=== PATIENT | male | born 1995 | race Caucasian/White ===

== ENCOUNTER 2023-01-19 21:37 | Emergency (ER) | payer BC, SELFPAY ==
[2023-01-19] VITALS (11 sets, daily range): BP systolic 85–109; BP diastolic 43–68; PULSE 84–99; RESP 18; TEMP 36.9–38.8; O2SAT 95–98; BMI 23.5
--- NOTE | 2023-01-19 22:03 | ED_ITS ---
HPI - Anxiety General Time Seen by Provider: 22:03 <Francisca Baird MD - Last Filed: 01/21/23 22:37> Date Seen: 01/19/23 <Francisca Baird MD - Last Filed: 01/21/23 22:37> Chief Complaint: Fever <Francisca Baird MD - Last Filed: 01/21/23 22:37> Stated Complaint: numbness in legs and arms <Francisca Baird MD - Last Filed: 01/21/23 22:37> Time Seen by Provider: 01/19/23 22:02 <Francisca Baird MD - Last Filed: 01/21/23 22:37> Source: patient and RN notes reviewed <Francisca Baird MD - Last Filed: 01/21/23 22:37> Mode of arrival: ambulatory <Francisca Baird MD - Last Filed: 01/21/23 22:37> Limitations: no limitations <Francisca Baird MD - Last Filed: 01/21/23 22:37> History of Present Illness HPI narrative: Patient is a 27yo male brought in by EMS from home not feeling well. He went to work early this am and was fine up until lunch. Over lunch he started feeling extremely warm. He was unaware if he was having a temperature. Did have some ST earlier, ?cough. Has headache that is generalized now. Under blankets and is asking for another one. Denies body aches but was noted by roommates per sister to be ?shaky earlier. No abdominal pain, no nausea/vomiting, no diarrhea or urinary symptoms. No travel, no definite known ill contacts. No new sexual contacts/partners. No IV drug use, no drug use. Was reported to be hyperventilating earlier and had numbness/tingling in arms/legs. Patient is currently under blankets, shivering at times, cheeks flushed and feels very warm to me. Nursing staff did come in and recheck temperature and was found to be 101.8F orally. <Francisca Baird MD - Last Filed: 01/21/23 22:37> Related Data Allergies/Adverse Reactions: Allergies Allergy/AdvReac Type Severity Reaction Status Date / Time No Known Drug Allergies Allergy Verified 01/19/23 21:47 <Francisca Baird MD - Last Filed: 01/21/23 22:37> Review of Systems Status of ROS: Reports: 10 or more systems reviewed and unremarkable except as noted in History and below <Francisca Baird MD - Last Filed: 01/21/23 22:37> [facility] [place] Social History: Social History Smoking Status: Current every day smoker Do you use any of these nicotine containing products: Vaping Products Second hand tobacco smoke exposure: No How often do you have a drink containing alcohol: 2-4 times a month How many standard drinks containing alcohol do you have on a typical day: 3 or 4 How often do you have six or more drinks on one occasion: Never AUDIT-C Alcohol total score: 3 Non-prescribed substance use: denies use service: No <Francisca Baird MD - Last Filed: 01/21/23 22:37> Exam Const: Vital Signs, click to edit/add: Vital Signs - 24 hr 01/19/23 21:42 01/19/23 22:12 01/19/23 22:14 Temperature 98.4 F 101.8 F H Pulse Rate Pulse Rate [Pulse Oximeter] Pulse Rate [Right Pulse Oximeter] 90 Respiratory Rate 18 Blood Pressure Blood Pressure [Le ft Arm] Blood Pressure [Ri ght Upper Arm] 109/68 Pulse Oximetry 98 97 Oxygen Delivery Me thod Room Air 01/19/23 22:50 01/19/23 22:58 01/19/23 23:03 Temperature 101.8 F H 101.5 F H Pulse Rate 85 Pulse Rate [Pulse Oximeter] 84 Pulse Rate [Right Pulse Oximeter] Respiratory Rate 18 Blood Pressure 103/43 L Blood Pressure [Le ft Arm] 103/43 L Blood Pressure [Ri ght Upper Arm] Pulse Oximetry 97 95 Oxygen Delivery Me thod Room Air 01/19/23 23:04 01/19/23 23:15 01/19/23 23:15 Temperature 99.5 F Pulse Rate 85 91 Pulse Rate [Pulse Oximeter] Pulse Rate [Right Pulse Oximeter] Respiratory Rate Blood Pressure Blood Pressure [Le ft Arm] Blood Pressure [Ri ght Upper Arm] Pulse Oximetry 97 96 Oxygen Delivery Me thod 01/19/23 23:30 01/19/23 23:32 01/19/23 23:46 Temperature Pulse Rate 99 85 86 Pulse Rate [Pulse Oximeter] Pulse Rate [Right Pulse Oximeter] Respiratory Rate Blood Pressure 85/68 L Blood Pressure [Le ft Arm] Blood Pressure [Ri ght Upper Arm] Pulse Oximetry 97 98 96 Oxygen Delivery Me thod 01/20/23 00:00 01/20/23 00:12 01/20/23 01:00 Temperature Pulse Rate 83 Pulse Rate [Pulse Oximeter] Pulse Rate [Right Pulse Oximeter] 78 68 Respiratory Rate Blood Pressure Blood Pressure [Le ft Arm] Blood Pressure [Ri ght Upper Arm] 96/59 L 91/61 Pulse Oximetry 96 Oxygen Delivery Me thod 01/20/23 01:56 Temperature Pulse Rate Pulse Rate [Pulse Oximeter] Pulse Rate [Right Pulse Oximeter] 68 Respiratory Rate Blood Pressure Blood Pressure [Le ft Arm] Blood Pressure [Ri ght Upper Arm] 96/59 L Pulse Oximetry Oxygen Delivery Me thod <Francisca Baird MD - Last Filed: 01/21/23 22:37> Vital Signs, click to edit/add: Vital Signs - 24 hr 01/19/23 21:42 01/19/23 22:12 01/19/23 22:14 Temperature 98.4 F 101.8 F H Pulse Rate Pulse Rate [Pulse Oximeter] Pulse Rate [Right Pulse Oximeter] 90 Respiratory Rate 18 Blood Pressure Blood Pressure [Le ft Arm] Blood Pressure [Ri ght Upper Arm] 109/68 Pulse Oximetry 98 97 Oxygen Delivery Me thod Room Air 01/19/23 22:50 01/19/23 22:58 01/19/23 23:03 Temperature 101.8 F H 101.5 F H Pulse Rate 85 Pulse Rate [Pulse Oximeter] 84 Pulse Rate [Right Pulse Oximeter] Respiratory Rate 18 Blood Pressure 103/43 L Blood Pressure [Le ft Arm] 103/43 L Blood Pressure [Ri ght Upper Arm] Pulse Oximetry 97 95 Oxygen Delivery Me thod Room Air 01/19/23 23:04 01/19/23 23:15 01/19/23 23:15 Temperature 99.5 F Pulse Rate 85 91 Pulse Rate [Pulse Oximeter] Pulse Rate [Right Pulse Oximeter] Respiratory Rate Blood Pressure Blood Pressure [Le ft Arm] Blood Pressure [Ri ght Upper Arm] Pulse Oximetry 97 96 Oxygen Delivery Me thod 01/19/23 23:30 01/19/23 23:32 01/19/23 23:46 Temperature Pulse Rate 99 85 86 Pulse Rate [Pulse Oximeter] Pulse Rate [Right Pulse Oximeter] Respiratory Rate Blood Pressure 85/68 L Blood Pressure [Le ft Arm] Blood Pressure [Ri ght Upper Arm] Pulse Oximetry 97 98 96 Oxygen Delivery Me thod 01/20/23 00:00 01/20/23 00:12 01/20/23 01:00 Temperature Pulse Rate 83 Pulse Rate [Pulse Oximeter] Pulse Rate [Right Pulse Oximeter] 78 68 Respiratory Rate Blood Pressure Blood Pressure [Le ft Arm] Blood Pressure [Ri ght Upper Arm] 96/59 L 91/61 Pulse Oximetry 96 Oxygen Delivery Me thod 01/20/23 01:56 Temperature Pulse Rate Pulse Rate [Pulse Oximeter] Pulse Rate [Right Pulse Oximeter] 68 Respiratory Rate Blood Pressure Blood Pressure [Le ft Arm] Blood Pressure [Ri ght Upper Arm] 96/59 L Pulse Oximetry Oxygen Delivery Me thod <Laurie Foreman MD - Last Filed: 01/20/23 02:02> Documenting provider has reviewed patient's vital signs: yes <Francisca Baird MD - Last Filed: 01/21/23 22:37> Common normals: no apparent distress, average body habitus, oriented x3, no limitations and alert <Francisca Baird MD - Last Filed: 01/21/23 22:37> General appearance: cooperative, comfortable, well kempt, well developed and ill appearing <Francisca Baird MD - Last Filed: 01/21/23 22:37> HENMT: Common normals: normocephalic, head/scalp atraumatic, hearing grossly normal bilaterally, external ears normal, TM's normal bilaterally, external nose normal, nasal mucous membranes and turbinates normal, moist oral mucous membranes, oropharynx normal, dentition normal and gingiva normal <Francisca Baird MD - Last Filed: 01/21/23 22:37> Head and scalp: normocephalic and atraumatic <Francisca Baird MD - Last Filed: 01/21/23 22:37> Nose: external nose normal and nasal mucous membranes and turbinates normal <Francisca Baird MD - Last Filed: 01/21/23 22:37> External ear: external ears normal <Francisca Baird MD - Last Filed: 01/21/23 22:37> Tympanic membrane: TM's normal bilaterally <Francisca Baird MD - Last Filed: 01/21/23 22:37> Eye: Common normals: PERRL, EOMs intact bilaterally, conjunctivae normal and no scleral icterus <Francisca Baird MD - Last Filed: 01/21/23 22:37> Conjunctiva: conjunctiva(e) normal <Francisca Baird MD - Last Filed: 01/21/23 22:37> Pupil: PERRL <Francisca Baird MD - Last Filed: 01/21/23 22:37> Neck & C-Spine: Common normals: full ROM, no lymphadenopathy, supple, no meningeal signs, no JVD and thyroid normal <Francisca Baird MD - Last Filed: 01/21/23 22:37> Thyroid: thyroid normal <Francisca Baird MD - Last Filed: 01/21/23 22:37> Chest: Common normals: inspection of chest normal and palpation of chest normal <Francisca Baird MD - Last Filed: 01/21/23 22:37> Resp: Common normals: normal respiratory effort, no retractions, no use of accessory muscles and clear to auscultation bilaterally <Francisca Winslow MD - Last Filed: 01/21/23 22:37> Auscultation: clear to auscultation bilaterally <Francisca Baird MD - Last Filed: 01/21/23 22:37> Cardio: Common normals: no JVD, regular rate, regular rhythm, S1 normal heart sound, S2 normal heart sound, no gallops, no clicks and no murmurs <Francisca Baird MD - Last Filed: 01/21/23 22:37> Rate: regular rate <Francisca Baird MD - Last Filed: 01/21/23 22:37> Rhythm: regular rhythm <Francisca Baird MD - Last Filed: 01/21/23 22:37> Heart sounds: S1 normal and S2 normal <Francisca Baird MD - Last Filed: 01/21/23 22:37> GI: Common normals: Normal to inspection, nondistended, normoactive bowel sounds present, soft to palpation, non-tender, no hepatosplenomegaly and no masses <Francisca Baird MD - Last Filed: 01/21/23 22:37> Palpation: soft and no hepatosplenomegaly <Francisca Baird MD - Last Filed: 01/21/23 22:37> Neuro: Common normals: oriented x3 <Francisca Baird MD - Last Filed: 01/21/23 22:37> Sensorium/orientation: alert <Francisca Baird MD - Last Filed: 22:37> Meningeal signs: no meningeal signs <Francisca Baird MD - Last Filed: 01/21/23 22:37> Psych: Appearance: well kempt <Francisca Baird MD - Last Filed: 01/21/23 22:37> Course Course Hospital Course: Patient certainly could have had a hyperventilation episode earlier but at this time is demonstrating a fever and obviously has an acute infectious illness. Will start an IV, do full complement of labs, see if we can identify a source for him. Portable chest x-ray will be done. I see nothing focally on his exam or with his history that is giving me a definite diagnosis. We will give him 15 mg IV Toradol as well as a 1000 mg oral Tylenol. This certainly could be bacterial or viral. <Francisca Baird MD - Last Filed: 01/21/23 22:37> Reevaluation(s) Reevaluation #1: Patient complaining of some sharper pain coming in left side of abdomen that has happened a few times now while here. Reviewed that labs are all reassuring at this time, nothing definitive for source of infection. He is questioned on sore throat again and he states that he doesn't have any at this time. Discussed options and he would like to proceed with CT imaging of his abdomen. He is complaining of left sided general abdominal pain on palpation now. <Francisca Baird MD - Last Filed: 01/21/23 22:37> Time: 00:08 <Francisca Baird MD - Last Filed: 01/21/23 22:37> Reevaluation #2: Patient was signed out to me by Dr. Bey to follow up on his CT and strep results. Strep was negative. CT scan by my review showed some edema around the gallbladder in in the portal system, did not see any other acute findings, final radiology report is of periportal edema which is nonspecific, no other acute findings. Reviewed his labs, his white blood cell count is normal although he does have a left shift. His CRP is mildly elevated at 1.6, lactate was normal. Blood cultures and urine culture are pending. Urine was entirely negative. I have repeated his abdominal exam, he denies any abdominal pain at this time and does not have any tenderness specifically no right upper quadrant tenderness. There are recorded blood pressures in the 80s, but he is laying on the arm with the blood pressure cuff on it and when I had him lie on his back and repeated a pressure, it comes back at 96 systolic. He is not tachycardic. He is nontoxic in appearance. For now, I think it is reasonable to let him go home. Have discussed with him that there are some nonspecific findings on his CT scan, if he develops abdominal pain vomiting or other acute worsening would want him to return. His bilirubin is mildly elevated at 2.6 but other LFTs are normal including his alk-phos and transaminases. In the absence of any abdominal pain or tenderness, these findings are somewhat nonspecific. Primary care follow-up if not improving over the next week or so. Low threshold for return if worsening. Works notes were provided for him and his significant other. <Laurie Foreman MD - Last Filed: 01/20/23 02:02> Vital Signs Vital signs: Initial Vital Signs Temperature 98.4 F 01/19/23 21:42 Temperature Source Temporal Artery Scan 01/19/23 21:42 Pulse Rate 90 01/19/23 21:42 Pulse Rhythm Regular 01/19/23 21:42 Pulse Strength 3+ Normal 01/19/23 21:42 Respiratory Rate 18 01/19/23 21:42 Blood Pressure 109/68 01/19/23 21:42 Blood Pressure Mean 81 01/19/23 21:42 Blood Pressure Position Supine 01/19/23 21:42 Pulse Oximetry 98 01/19/23 21:42 Oxygen Delivery Method Room Air 01/19/23 21:42 Vital Signs Temperature 98.4 F 01/19/23 21:42 Pulse Rate 90 01/19/23 21:42 Respiratory Rate 18 01/19/23 21:42 Blood Pressure 109/68 01/19/23 21:42 Pulse Oximetry 98 01/19/23 21:42 Oxygen Delivery Method Room Air 01/19/23 21:42 Temperature 99.5 F 01/19/23 23:15 Pulse Rate 68 01/20/23 01:56 Respiratory Rate 18 01/19/23 22:58 Blood Pressure 96/59 L 01/20/23 01:56 Pulse Oximetry 96 01/20/23 00:00 Oxygen Delivery Method Room Air 01/19/23 22:58 <Francisca Baird MD - Last Filed: 01/21/23 22:37> Initial Vital Signs Temperature 98.4 F 01/19/23 21:42 Temperature Source Temporal Artery Scan 01/19/23 21:42 Pulse Rate 90 01/19/23 21:42 Pulse Rhythm Regular 01/19/23 21:42 Pulse Strength 3+ Normal 01/19/23 21:42 Respiratory Rate 18 01/19/23 21:42 Blood Pressure 109/68 01/19/23 21:42 Blood Pressure Mean 81 01/19/23 21:42 Blood Pressure Position Supine 01/19/23 21:42 Pulse Oximetry 98 01/19/23 21:42 Oxygen Delivery Method Room Air 01/19/23 21:42 Vital Signs Temperature 98.4 F 01/19/23 21:42 Pulse Rate 90 01/19/23 21:42 Respiratory Rate 18 01/19/23 21:42 Blood Pressure 109/68 01/19/23 21:42 Pulse Oximetry 98 01/19/23 21:42 Oxygen Delivery Method Room Air 01/19/23 21:42 Temperature 99.5 F 01/19/23 23:15 Pulse Rate 68 01/20/23 01:56 Respiratory Rate 18 01/19/23 22:58 Blood Pressure 96/59 L 01/20/23 01:56 Pulse Oximetry 96 01/20/23 00:00 Oxygen Delivery Method Room Air 01/19/23 22:58 <Laurie Foreman MD - Last Filed: 01/20/23 02:02> MDM - Anxiety Lab Data Attestation: I reviewed the patient's lab results. <Francisca Baird MD - Last Filed: 01/21/23 22:37> Labs: Lab Results 01/19/23 01/19/23 01/19/23 Range/Units 22:32 22:41 22:44 WBC 9.34 (4.50-11.00) K/uL RBC 4.97 (4.30-5.90) m/uL Hgb 15.1 (13.5-17.5) gm/dL Hct 40.3 (37.0-53.0) % MCV 81 (80-100) fL MCH 30 (26-34) pg MCHC 38 H (32-36) gm/dL RDW Coeff of El 11.8 (11.5-15.5) % Plt Count 180 (140-440) K/uL Neut % (Auto) 89.2 H (42.0-72.0) % Lymph % (Auto) 5.1 L (20-44) % [place] % (Auto) 4.2 (0.0-11.0) % Eos % (Auto) 0.7 (0.0-7.0) % Baso % (Auto) 0.1 (0.0-3.0) % Neut # (Auto) 8.30 H (1.7-7.0) K/uL Lymph # (Auto) 0.50 L (0.90-2.90) K/uL [place] # (Auto) 0.40 (0.00-0.90) K/UL Eos # (Auto) 0.07 (0.00-0.50) K/uL Baso # (Auto) 0.01 (0.00-0.30) K/uL Sodium 137 (135-149) mmol/L Potassium 3.3 L (3.6-5.1) mmol/L Chloride 104 (96-114) mmol/L Carbon Dioxide 20 (20-32) mmol/L BUN 17 (5-24) mg/dL Creatinine 1.0 (0.5-1.5) mg/dL Estimated Creat Clear 101.90 Estimated GFR 104 ml/min Glucose 90 (60-115) mg/dL Lactate 1.4 (0.5-1.9) mmol/L Calcium 9.5 (8.4-10.6) mg/dL Total Bilirubin 2.6 H (0.1-1.5) mg/dL AST 21 (12-35) U/L ALT 19 (4-50) U/L Alkaline Phosphatase 53 (40-150) U/L C-Reactive Protein 1.6 H (0.5-1.0) mg/dL Total Protein 8.1 (6.0-8.3) g/dL Albumin 4.9 (3.3-5.0) g/dL Urine Color Yellow (Yellow) Urine Appearance Clear (Clear) Urine pH 6.0 (5.0-8.5) Ur Specific [place] 1.020 (1.000-1.030) Urine Protein Negative (Negative) Urine Glucose (UA) Negative (Negative) Urine Ketones 1+ A (Negative) Urine Blood Trace-intact A (Negative) Urine Nitrite Negative (Negative) Urine Bilirubin Negative (Negative) Urine Urobilinogen 1.0 (0.2-1.0) Ur Leukocyte Esterase Negative (Negative) Urine RBC 0-2 (0-2) Urine WBC 0-2 (0-5) Ur Squamous Epith Cells Few (None-Few) Urine Bacteria Few A (None) Urine Mucus Few A (None) SARS-CoV-2 (PCR) Negative SARS-CoV-2 (Negative) Influenza Type A (PCR) Negative PCR FLU A (Negative) Influenza Type B (PCR) Negative PCR FLU B (Negative) RSV (PCR) Negative PCR RSV (Negative) Group A Strep DNA (Not Detectd) 01/20/23 Range/Units 01:00 WBC (4.50-11.00) K/uL RBC (4.30-5.90) m/uL Hgb (13.5-17.5) gm/dL Hct (37.0-53.0) % MCV (80-100) fL MCH (26-34) pg MCHC (32-36) gm/dL RDW Coeff of El (11.5-15.5) % Plt Count (140-440) K/uL Neut % (Auto) (42.0-72.0) % Lymph % (Auto) (20-44) % [place] % (Auto) (0.0-11.0) % Eos % (Auto) (0.0-7.0) % Baso % (Auto) (0.0-3.0) % Neut # (Auto) (1.7-7.0) K/uL Lymph # (Auto) (0.90-2.90) K/uL [place] # (Auto) (0.00-0.90) K/UL Eos # (Auto) (0.00-0.50) K/uL Baso # (Auto) (0.00-0.30) K/uL Sodium (135-149) mmol/L Potassium (3.6-5.1) mmol/L Chloride (96-114) mmol/L Carbon Dioxide (20-32) mmol/L BUN (5-24) mg/dL Creatinine (0.5-1.5) mg/dL Estimated Creat Clear Estimated GFR ml/min Glucose (60-115) mg/dL Lactate (0.5-1.9) mmol/L Calcium (8.4-10.6) mg/dL Total Bilirubin (0.1-1.5) mg/dL AST (12-35) U/L ALT (4-50) U/L Alkaline Phosphatase (40-150) U/L C-Reactive Protein (0.5-1.0) mg/dL Total Protein (6.0-8.3) g/dL Albumin (3.3-5.0) g/dL Urine Color (Yellow) Urine Appearance (Clear) Urine pH (5.0-8.5) Ur Specific [place] (1.000-1.030) Urine Protein (Negative) Urine Glucose (UA) (Negative) Urine Ketones (Negative) Urine Blood (Negative) Urine Nitrite (Negative) Urine Bilirubin (Negative) Urine Urobilinogen (0.2-1.0) Ur Leukocyte Esterase (Negative) Urine RBC (0-2) Urine WBC (0-5) Ur Squamous Epith Cells (None-Few) Urine Bacteria (None) Urine Mucus (None) SARS-CoV-2 (PCR) (Negative) Influenza Type A (PCR) (Negative) Influenza Type B (PCR) (Negative) RSV (PCR) (Negative) Group A Strep DNA NOT DETECTED (Not Detectd) <Francisca Baird MD - Last Filed: 01/21/23 22:37> Lab Results 01/19/23 01/19/23 01/19/23 Range/Units 22:32 22:41 22:44 WBC 9.34 (4.50-11.00) K/uL RBC 4.97 (4.30-5.90) m/uL Hgb 15.1 (13.5-17.5) gm/dL Hct 40.3 (37.0-53.0) % MCV 81 (80-100) fL MCH 30 (26-34) pg MCHC 38 H (32-36) gm/dL RDW Coeff of El 11.8 (11.5-15.5) % Plt Count 180 (140-440) K/uL Neut % (Auto) 89.2 H (42.0-72.0) % Lymph % (Auto) 5.1 L (20-44) % [place] % (Auto) 4.2 (0.0-11.0) % Eos % (Auto) 0.7 (0.0-7.0) % Baso % (Auto) 0.1 (0.0-3.0) % Neut # (Auto) 8.30 H (1.7-7.0) K/uL Lymph # (Auto) 0.50 L (0.90-2.90) K/uL [place] # (Auto) 0.40 (0.00-0.90) K/UL Eos # (Auto) 0.07 (0.00-0.50) K/uL Baso # (Auto) 0.01 (0.00-0.30) K/uL Sodium 137 (135-149) mmol/L Potassium 3.3 L (3.6-5.1) mmol/L Chloride 104 (96-114) mmol/L Carbon Dioxide 20 (20-32) mmol/L BUN 17 (5-24) mg/dL Creatinine 1.0 (0.5-1.5) mg/dL Estimated Creat Clear 101.90 Estimated GFR 104 ml/min Glucose 90 (60-115) mg/dL Lactate 1.4 (0.5-1.9) mmol/L Calcium 9.5 (8.4-10.6) mg/dL Total Bilirubin 2.6 H (0.1-1.5) mg/dL AST 21 (12-35) U/L ALT 19 (4-50) U/L Alkaline Phosphatase 53 (40-150) U/L C-Reactive Protein 1.6 H (0.5-1.0) mg/dL Total Protein 8.1 (6.0-8.3) g/dL Albumin 4.9 (3.3-5.0) g/dL Urine Color Yellow (Yellow) Urine Appearance Clear (Clear) Urine pH 6.0 (5.0-8.5) Ur Specific [place] 1.020 (1.000-1.030) Urine Protein Negative (Negative) Urine Glucose (UA) Negative (Negative) Urine Ketones 1+ A (Negative) Urine Blood Trace-intact A (Negative) Urine Nitrite Negative (Negative) Urine Bilirubin Negative (Negative) Urine Urobilinogen 1.0 (0.2-1.0) Ur Leukocyte Esterase Negative (Negative) Urine RBC 0-2 (0-2) Urine WBC 0-2 (0-5) Ur Squamous Epith Cells Few (None-Few) Urine Bacteria Few A (None) Urine Mucus Few A (None) SARS-CoV-2 (PCR) Negative SARS-CoV-2 (Negative) Influenza Type A (PCR) Negative PCR FLU A (Negative) Influenza Type B (PCR) Negative PCR FLU B (Negative) RSV (PCR) Negative PCR RSV (Negative) Group A Strep DNA (Not Detectd) 01/20/23 Range/Units 01:00 WBC (4.50-11.00) K/uL RBC (4.30-5.90) m/uL Hgb (13.5-17.5) gm/dL Hct (37.0-53.0) % MCV (80-100) fL MCH (26-34) pg MCHC (32-36) gm/dL RDW Coeff of El (11.5-15.5) % Plt Count (140-440) K/uL Neut % (Auto) (42.0-72.0) % Lymph % (Auto) (20-44) % [place] % (Auto) (0.0-11.0) % Eos % (Auto) (0.0-7.0) % Baso % (Auto) (0.0-3.0) % Neut # (Auto) (1.7-7.0) K/uL Lymph # (Auto) (0.90-2.90) K/uL [place] # (Auto) (0.00-0.90) K/UL Eos # (Auto) (0.00-0.50) K/uL Baso # (Auto) (0.00-0.30) K/uL Sodium (135-149) mmol/L Potassium (3.6-5.1) mmol/L Chloride (96-114) mmol/L Carbon Dioxide (20-32) mmol/L BUN (5-24) mg/dL Creatinine (0.5-1.5) mg/dL Estimated Creat Clear Estimated GFR ml/min Glucose (60-115) mg/dL Lactate (0.5-1.9) mmol/L Calcium (8.4-10.6) mg/dL Total Bilirubin (0.1-1.5) mg/dL AST (12-35) U/L ALT (4-50) U/L Alkaline Phosphatase (40-150) U/L C-Reactive Protein (0.5-1.0) mg/dL Total Protein (6.0-8.3) g/dL Albumin (3.3-5.0) g/dL Urine Color (Yellow) Urine Appearance (Clear) Urine pH (5.0-8.5) Ur Specific [place] (1.000-1.030) Urine Protein (Negative) Urine Glucose (UA) (Negative) Urine Ketones (Negative) Urine Blood (Negative) Urine Nitrite (Negative) Urine Bilirubin (Negative) Urine Urobilinogen (0.2-1.0) Ur Leukocyte Esterase (Negative) Urine RBC (0-2) Urine WBC (0-5) Ur Squamous Epith Cells (None-Few) Urine Bacteria (None) Urine Mucus (None) SARS-CoV-2 (PCR) (Negative) Influenza Type A (PCR) (Negative) Influenza Type B (PCR) (Negative) RSV (PCR) (Negative) Group A Strep DNA NOT DETECTED (Not Detectd) <Laurie Foreman MD - Last Filed: 01/20/23 02:02> Imaging Data Chest x-ray: Attestation: I have reviewed the pertinent imaging results. <Francisca Winslow MD - Last Filed: 01/21/23 22:37> Radiologist's impression: Patient: SHARONA CERDA Facility:?[facility] Patient ID:?[id number] Site Patient ID:?[id number]. Site :?[id number] Study:?XRay Chest PORTABLE ONE VIEW-01/19/2023 10:50:01 PM Ordering Physician:Alin Espinosa Final Report: Indication: Fever. Technique: Chest 1 view. Comparison: None. Findings/Impression: Cardiovascular and mediastinum: Heart size and vasculature are normal in caliber and appearance. Lungs and pleural space: There is central peribronchial thickening which could indicate bronchitis. Remainder of the lungs and pleural spaces are clear. No pneumothorax. Bones and soft tissues: No acute findings. Dictated by Ant Madrigal MD @ 01/19/2023 10:54:09 PM (Electronic Signature) <Francisca Baird MD - Last Filed: 01/21/23 22:37> Critical Care Time Critical Care Time Critical Care Time: No <Francisca Baird MD - Last Filed: 01/21/23 22:37> Discharge Plan Discharge Clinical Impression: Fever <Francisca Baird MD - Last Filed: 01/21/23 22:37> Patient Disposition: Home, Self-Care <Francisca Baird MD - Last Filed: 01/21/23 22:37> Condition: Stable <Francisca Baird MD - Last Filed: 01/21/23 22:37> Additional Instructions: Need to take ibuprofen 600mg up to 4x/day for fever. May need to use Tylenol 1000mg 3x/day as well. Drink plenty of fluids. For persistent high fevers, worsening abdominal pain, vomiting, or other acute changes, return to the ER for recheck. Viral illnesses usually are improving anywhere between 3-7 days. If not improving in that time frame, follow-up with primary care. <Francisca Baird MD - Last Filed: 01/21/23 22:37> Activity Level: Activity as Tolerated <Francisca Baird MD - Last Filed: 01/21/23 22:37> Activity as Tolerated <Laurie Foreman MD - Last Filed: 01/20/23 02:02> Discharge Diet: Regular <Francisca Baird MD - Last Filed: 01/21/23 22:37> Regular <Laurie Foreman MD - Last Filed: 01/20/23 02:02> Follow Up/Referrals: Provider,Not a Local [Referring] - <Francisca Baird MD - Last Filed: 01/21/23 22:37> Stand Alone Forms: MyHealth Info Instructions <Francisca Baird MD - Last Filed: 01/21/23 22:37>
--- NOTE | 2023-01-19 22:13 | CRLHL7_ITS ---
For Patients: As a result of the Cures Act, medical imaging exams and procedure reports are released immediately into your electronic medical record. You may view this report before your referring provider. If you have questions, please contact your health care provider. Indication: Fever. Technique: Chest 1 view. Comparison: None. Findings/Impression: Cardiovascular and mediastinum: Heart size and vasculature are normal in caliber and appearance. Lungs and pleural space: There is central peribronchial thickening which could indicate bronchitis. Remainder of the lungs and pleural spaces are clear. No pneumothorax. Bones and soft tissues: No acute findings. Dictated by Ant Madrigal MD @ 01/19/2023 10:54:09 PM (Electronically Signed)
[2023-01-19 22:41] LABS: Appearance Urine Clear (Clear); Bilirubin Urine Negative (Negative); Blood Urine Trace-intact (Negative); Color Urine Yellow (Yellow); Glucose Urine Negative (Negative); Ketones Urine 1+ (Negative); Leukocyte Esterase Urine Negative (Negative); Nitrite Urine Negative (Negative); Protein Urine Negative (Negative)
[2023-01-19 22:48] LABS: Lactate* 1.4 mmol/L (0.5-1.9)
[2023-01-19] MEDS: KETOROLAC 15 MG/ML inj IVP (22:50)
[2023-01-19] MEDS: 0.9 % SODIUM CHLORIDE 1000 ml 1,000 ML IV (22:50)
[2023-01-19] MEDS: ACETAMINOPHEN 500 MG TABLET 1000 MG PO (22:50)
[2023-01-19 22:55] LABS: Bacteria Urine Few; Mucus Urine Few; RBC Urine 0-2 (0-2); Squamous Epithelial Cell Urine Few (None-Few); WBC Urine 0-2 (0-5)
[2023-01-19 23:01] LABS: Basophils Absolute Auto 0.01 K/uL (0.00-0.30); Basophils Percent Auto 0.1 % (0.0-3.0); Eosinophils Absolute Auto 0.07 K/uL (0.00-0.50); Eosinophils Percent Auto 0.7 % (0.0-7.0); Hematocrit 40.3 % (37.0-53.0); Hemoglobin* 15.1 gm/dL (13.5-17.5); Immature Granulocytes Abs Auto 0.07 K/uL (0.00-0.30); Immature Granulocytes Pct Auto 0.7 %; Lymphocytes Percent Auto 5.1 % (20-44); Mean Corpuscular HGB Conc 38 gm/dL (32-36); Mean Corpuscular Hemoglobin 30 pg (26-34); Mean Corpuscular Volume 81 fL (80-100); Monocytes Percent Auto 4.2 % (0.0-11.0); Neutrophils Percent Auto 89.2 % (42.0-72.0); Platelet Count* 180 K/uL (140-440); RDW Coefficient of Variation % 11.8 % (11.5-15.5); Red Blood Count 4.97 m/uL (4.30-5.90); Slide Review Reflex No; White Blood Count* 9.34 K/uL (4.50-11.00)
[2023-01-19 23:03] LABS: Albumin* 4.9 g/dL (3.3-5.0); Chloride* 104 mmol/L (96-114)
[2023-01-19 23:04] LABS: Potassium* 3.3 mmol/L (3.6-5.1); Sodium* 137 mmol/L (135-149)
[2023-01-19 23:06] LABS: Estimated Glomerular Filt Rate 104 ml/min
[2023-01-19 23:07] LABS: Alanine Aminotransferase* 19 U/L (4-50); Alkaline Phosphatase* 53 U/L (40-150); Aspartate Amino Transferase* 21 U/L (12-35); Bilirubin Total* 2.6 mg/dL (0.1-1.5); Blood Urea Nitrogen* 17 mg/dL (5-24); Carbon Dioxide* 20 mmol/L (20-32); Glucose* 90 mg/dL (60-115); Total Protein* 8.1 g/dL (6.0-8.3)
[2023-01-19 23:08] LABS: Calcium* 9.5 mg/dL (8.4-10.6)
[2023-01-19 23:10] LABS: C Reactive Protein* 1.6 mg/dL (0.5-1.0)
[2023-01-19 23:35] LABS: PCR FLU A Negative PCR FLU A (Negative); PCR FLU B Negative PCR FLU B (Negative); PCR RSV Negative PCR RSV (Negative)
[2023-01-19 23:51] LABS: SARS PCR* Negative SARS-CoV-2 (Negative)
[2023-01-20] VITALS: PULSE 83; O2SAT 96
[2023-01-20 00:12] VITALS: BP 96/59; PULSE 78
--- NOTE | 2023-01-20 00:12 | CRLHL7_ITS ---
For Patients: As a result of the Century Cures Act, medical imaging exams and procedure reports are released immediately into your electronic medical record. You may view this report before your referring provider. If you have questions, please contact your health care provider. INDICATION: Fever, left-sided abdominal pain. TECHNIQUE: CT abdomen and pelvis acquired with 74 cc Isovue 370 IV contrast. Permanently recorded images are archived. COMPARISON: None. FINDINGS: Lower chest: Unremarkable. Liver: Mild periportal edema. Normal contour. No suspicious mass. Gallbladder and bile ducts: Unremarkable. No stones or inflammation. No biliary dilatation. Pancreas: Unremarkable. No mass or inflammation. Spleen: Unremarkable. Normal in size. No masses. Adrenal glands: Unremarkable. No nodules. Kidneys: Unremarkable. No suspicious masses, stones, or hydronephrosis. GI tract: Unremarkable. Normal in caliber. No sign of inflammation. Normal appendix. Vasculature: Abdominal aorta is normal in caliber. Mesenteric arteries are patent. Lymph nodes: No lymphadenopathy. Peritoneum/Abdominal Wall: Unremarkable. No free air or significant free fluid. Pelvis: Nondistended bladder. Mild circumferential bladder wall thickening. Bones: Unremarkable for age. IMPRESSION: Mild periportal edema. This can be due to IV hydration, among other etiologies. Mild circumferential bladder wall thickening. This could be on the basis of underdistention; however, cystitis cannot be entirely excluded. Otherwise, unremarkable CT of the abdomen and pelvis. Normal appendix. Please note that all CT scans at this facility use dose modulation, iterative reconstruction, and/or weight-based dosing when appropriate to reduce radiation dose to as low as reasonably achievable. Dictated by Leonel Macedo MD @ 01/20/2023 1:16:02 AM (Electronically Signed)
[2023-01-20 01:00] VITALS: BP 91/61; PULSE 68
[2023-01-20 01:42] LABS: Strep A DNA Probe* NOT DETECTED (Not Detectd)
[2023-01-20 01:56] VITALS: BP 96/59; PULSE 68
== END 2023-01-20 02:04 | disposition home or self-care (01) ==
PROVIDERS: Emergency Medicine; Emergency Provider Family Medicine; PCP Family Medicine
DX: R50.9 Fever, unspecified (principal); R10.9 Unspecified abdominal pain
CPT/HCPCS: 36415; 71045; 74177; 80053; 81001; 83605; 85025; 86140; 87040; 87086; 87631; 87651; 94761; 96374; 99284; 99285; A9270; J1885; J7030; Q9967

== ENCOUNTER 2023-09-21 20:07 | Emergency (ER) | payer BC, SELFPAY ==
[2023-09-21 20:11] VITALS: BP 126/77; PULSE 92; RESP 16; TEMP 36.8; O2SAT 99; BMI 19.2
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
[2023-09-21] MEDS: IBUPROFEN 200 MG TABLET 400 MG PO (20:52)
== END 2023-09-21 21:34 | disposition home or self-care (01) ==
LOC: ED 21:05
PROVIDERS: Emergency Provider Family Medicine; PCP Family Medicine
DX: S39.012A Strain of muscle, fascia and tendon of lower back, initial encounter (principal); V43.52XA Car driver injured in collision with other type car in traffic accident, initial encounter
CPT/HCPCS: 72131; 99284; A9270

== ENCOUNTER 2023-09-26 19:16 | Emergency (ER) | payer BC, SELFPAY ==
[2023-09-26 19:26] VITALS: BP 115/75; PULSE 63; RESP 14; TEMP 36.7; O2SAT 100; BMI 19.8
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
== END 2023-09-26 20:04 | disposition home or self-care (01) ==
LOC: ED 19:56
PROVIDERS: Emergency Provider Student in an Organized Health Care Education/Training Program; PCP Family Medicine
DX: S16.1XXA Strain of muscle, fascia and tendon at neck level, initial encounter (principal); S39.012A Strain of muscle, fascia and tendon of lower back, initial encounter; V43.52XA Car driver injured in collision with other type car in traffic accident, initial encounter
CPT/HCPCS: 99282; 99283

== ENCOUNTER 2024-03-03 17:20 | Emergency (ER) | payer OTHER, SELFPAY ==
[2024-03-03 17:26] VITALS: BP 114/76; PULSE 93; RESP 18; TEMP 36.4; O2SAT 99; BMI 19.8
--- NOTE | 2024-03-03 17:36 | CRLHL7_ITS ---
For Patients: As a result of the Century Cures Act, medical imaging exams and procedure reports are released immediately into your electronic medical record. You may view this report before your referring provider. If you have questions, please contact your health care provider. Indication: CRUSH INJURY Technique: Three views of the left ankle Comparison: None Findings/impression : No acute fracture or malalignment. No ankle effusion. The osseous structures are unremarkable in appearance. Mild soft tissue swelling about the ankle joint. Dictated by Mike Her MD @ 03/03/2024 6:16:12 PM (Electronically Signed)
--- NOTE | 2024-03-03 18:19 | ED.GENADULT ---
HPI - General Adult General Chief complaint: Extremity Pain/Injury, Lower Stated complaint: L foot injury Time Seen by Provider: 03/03/24 17:24 Source: patient Mode of arrival: ambulatory Limitations: no limitations History of Present Illness HPI narrative: 28-year-old male coming in today complaining of ankle pain. Patient states that he was at work for several hours ago when his foot got caught between a Pallet and a metal piece of equipment. He has been having pain ever since, difficult to walk. Denies any other injury. Related Data Home Medications ?Medication ?Instructions ?Recorded ?Confirmed escitalopram oxalate 20 mg tablet 20 mg PO DAILY 09/21/23 09/26/23 Allergies Allergy/AdvReac Type Severity Reaction Status Date / Time No Known Drug Allergies Allergy Verified 01/19/23 21:47 Review of Systems Status of ROS: Reports: 6 or more systems reviewed and unremarkable except as noted in History and below [facility] Social History Smoking Status: Current every day smoker Do you use any of these nicotine containing products: Vaping Products Second hand tobacco smoke exposure: No How often do you have a drink containing alcohol: 2-4 times a month How many standard drinks containing alcohol do you have on a typical day: 3 or 4 How often do you have six or more drinks on one occasion: Never AUDIT-C Alcohol total score: 3 Non-prescribed substance use: denies use service: No Exam Narrative: Exam Narrative: Well-nourished well-developed patient in no acute distress. Alert and oriented. Answers questions appropriately. Mood and affect are appropriate. Thoughts are goal oriented and rational. No tangential or magical thinking noted. Patient speaks in full sentences without needing to catch his breath. HEENT: Normocephalic atraumatic. Pupils are equally round reactive to light. Extraocular muscles are intact. Conjunctivae are moist without any icterus noted. Moist mucous membranes. Extremities: Left ankle has mild swelling just distal to the lateral malleolus. He has tenderness just distal to the lateral malleolus. No tenderness at the lateral malleolus. He has normal DP and PT pulses, skin is well perfused. There is no erythema or bruising noted. He has no tenderness with firm palpation to the volar surface of the foot. No pain at the toes, remainder of foot exam is entirely normal. He has pain with flexion of the ankle. Const: Vital Signs, click to edit/add: Vital Signs - 24 hr 03/03/24 17:26 Temperature 97.6 F Pulse Rate [Right Pulse Oximeter] 93 Respiratory Rate 18 Blood Pressure [Ri ght Upper Arm] 114/76 Pulse Oximetry 99 Oxygen Delivery Me thod Room Air Course Course ED Course: Ankle x-ray unremarkable. Vital Signs Vital signs: Initial Vital Signs Temperature 97.6 F 03/03/24 17:26 Temperature Source Temporal Artery Scan 03/03/24 17:26 Pulse Rate 93 03/03/24 17:26 Respiratory Rate 18 03/03/24 17:26 Blood Pressure 114/76 03/03/24 17:26 Blood Pressure Mean 88 03/03/24 17:26 Blood Pressure Position Sitting 03/03/24 17:26 Pulse Oximetry 99 03/03/24 17:26 Oxygen Delivery Method Room Air 03/03/24 17:26 Vital Signs Temperature 97.6 F 03/03/24 17:26 Pulse Rate 93 03/03/24 17:26 Respiratory Rate 18 03/03/24 17:26 Blood Pressure 114/76 03/03/24 17:26 Pulse Oximetry 99 03/03/24 17:26 Oxygen Delivery Method Room Air 03/03/24 17:26 Temperature 97.6 F 03/03/24 17:26 Pulse Rate 93 03/03/24 17:26 Respiratory Rate 18 03/03/24 17:26 Blood Pressure 114/76 03/03/24 17:26 Pulse Oximetry 99 03/03/24 17:26 Oxygen Delivery Method Room Air 03/03/24 17:26 Medical Decision Making MDM Narrative Medical decision making narrative: A crush injury with resulting contusion of the left ankle. We discussed symptomatic treatment and reasons for follow-up. Imaging Data Ankle x-ray: Attestation: I have reviewed the pertinent imaging results. Radiologist's impression: Three views of the left ankle Comparison: None Findings/impression : No acute fracture or malalignment. No ankle effusion. The osseous structures are unremarkable in appearance. Mild soft tissue swelling about the ankle joint. Discharge Plan Discharge Clinical Impression: Ankle sprain and strain Patient Disposition: Home, Self-Care Condition: Stable Additional Instructions: Elevate the leg as much as possible over the next 1-2 days. Ice the sore areas, do not apply ice directly to skin. Ice for 20 minutes at a time. Okay to use ibuprofen or Tylenol as needed/as directed for discomfort. Activity as tolerated. If you feel that you are not improving over the next 3-5 days, follow-up with your primary care provider. Prescriptions: No Action escitalopram oxalate 20 mg tablet 20 mg PO DAILY Follow Up/Referrals: David Gallardo MD [Primary Care Provider] - Stand Alone Forms: Referral.IM Info Instructions
== END 2024-03-03 18:33 | disposition home or self-care (01) ==
PROVIDERS: Emergency Provider Family Medicine; PCP Family Medicine
DX: S93.402A Sprain of unspecified ligament of left ankle, initial encounter (principal); W23.0XXA Caught, crushed, jammed, or pinched between moving objects, initial encounter
CPT/HCPCS: 73610; 99283; 99284

== ENCOUNTER 2024-09-04 16:12 | Emergency (ER) | payer OTHER, BC, SELFPAY ==
[2024-09-04 16:42] VITALS: BP 103/75; PULSE 87; RESP 16; TEMP 36.9; O2SAT 99; BMI 19.2
--- NOTE | 2024-09-04 18:06 | ED.GENADULT ---
HPI - General Adult General Chief complaint: Head Injury/Pain Stated complaint: Head injury at work Time Seen by Provider: 09/04/24 17:52 Source: patient Mode of arrival: ambulatory Limitations: no limitations History of Present Illness HPI narrative: 29-year-old male presenting today with a laceration to the scalp after getting hit in the head with a metal plate at work. He did not lose consciousness. He denies any confusion, nausea or vomiting. He denies difficulty walking or any focal neurologic deficits. He does not have a headache. Last tetanus shot was in 2019. Related Data Home Medications ?Medication ?Instructions ?Recorded ?Confirmed escitalopram oxalate 20 mg tablet 20 mg PO DAILY 09/21/23 09/04/24 Allergies Allergy/AdvReac Type Severity Reaction Status Date / Time No Known Drug Allergies Allergy Verified 01/19/23 21:47 Review of Systems Status of ROS: Reports: 6 or more systems reviewed and unremarkable except as noted in History and below [facility] Social History Smoking Status: Current every day smoker Do you use any of these nicotine containing products: Vaping Products Second hand tobacco smoke exposure: No How often do you have a drink containing alcohol: never How often do you have six or more drinks on one occasion: Never AUDIT-C Alcohol total score: 0 Non-prescribed substance use: denies use service: No Exam Narrative: Exam Narrative: Well-nourished well-developed patient in no acute distress. Alert and oriented. Answers questions appropriately. Mood and affect are appropriate. Thoughts are goal oriented and rational. No tangential or magical thinking noted. Patient speaks in full sentences without needing to catch his breath. HEENT: Normocephalic . Pupils are equally round reactive to light. Extraocular muscles are intact. Conjunctivae are moist without any icterus noted. Moist mucous membranes. Posterior pharynx is normal. Neck is soft. Patient has an approximately 2-1/2 inch laceration to the parietal and temporal area on the right side. He also has a smaller laceration cephalad to that 1 that is approximately 1/2 inch. There is good hemostasis and no active bleeding on either laceration. Const: Vital Signs, click to edit/add: Vital Signs - 24 hr 09/04/24 16:42 Temperature 98.4 F Pulse Rate [Pulse Oximeter] 87 Respiratory Rate 16 Blood Pressure [Ri ght Upper Arm] 103/75 Pulse Oximetry 99 Oxygen Delivery Me thod Room Air Course Course ED Course: Wounds were anesthetized with lidocaine with epinephrine and irrigated and explored. No foreign objects visualized. One suture was placed on a smaller laceration with 3-0 Prolene and 1 running suture was placed on the larger laceration. Vital Signs Vital signs: Initial Vital Signs Temperature 98.4 F 09/04/24 16:42 Temperature Source Temporal Artery Scan 09/04/24 16:42 Pulse Rate 87 09/04/24 16:42 Respiratory Rate 16 09/04/24 16:42 Blood Pressure 103/75 09/04/24 16:42 Blood Pressure Mean 84 09/04/24 16:42 Blood Pressure Position Sitting 09/04/24 16:42 Pulse Oximetry 99 09/04/24 16:42 Oxygen Delivery Method Room Air 09/04/24 16:42 Vital Signs Temperature 98.4 F 09/04/24 16:42 Pulse Rate 87 09/04/24 16:42 Respiratory Rate 16 09/04/24 16:42 Blood Pressure 103/75 09/04/24 16:42 Pulse Oximetry 99 09/04/24 16:42 Oxygen Delivery Method Room Air 09/04/24 16:42 Temperature 98.4 F 09/04/24 16:42 Pulse Rate 87 09/04/24 16:42 Respiratory Rate 16 09/04/24 16:42 Blood Pressure 103/75 09/04/24 16:42 Pulse Oximetry 99 09/04/24 16:42 Oxygen Delivery Method Room Air 09/04/24 16:42 Medications Administered Medications: Discontinued Medications Generic Name Dose Route Start Last Admin Trade Name Freq PRN Reason Stop Dose Admin Lidocaine/Epinephrine 20 ml 09/04/24 18:06 09/04/24 18:29 Lidocaine 1%-Epi 1:100,000 INFILTRATI 09/04/24 18:07 20 ml ONCE ONE Administration Medical Decision Making MDM Narrative Medical decision making narrative: 29-year-old male laceration to the scalp, treatment per above. Discharge Plan Discharge Clinical Impression: Laceration Patient Disposition: Home, Self-Care Condition: Improved Additional Instructions: Keep wound clean and dry. Do not soak such as taking baths, swimming. Follow-up in approximately 7-10 days for suture removal with your primary care provider. Watch for signs and symptoms of infection including increasing redness of the area, purulent drainage, or fever. If this occurs follow-up right away with your doctor or return to the ER. There are 2 lacerations on the scalp: a small 1 that has 1 suture, and a larger 1 with a running suture. Prescriptions: No Action escitalopram oxalate 20 mg tablet 20 mg PO DAILY Follow Up/Referrals: David Gallardo MD [Primary Care Provider] - Stand Alone Forms: [employer] Info Instructions
[2024-09-04] MEDS: LIDOCAINE 1%-EPI 1:100,000 20 ML INFILTRATI (18:29)
== END 2024-09-04 18:54 | disposition home or self-care (01) ==
PROVIDERS: Emergency Provider Family Medicine; PCP Family Medicine
DX: S01.01XA Laceration without foreign body of scalp, initial encounter (principal); W22.8XXA Striking against or struck by other objects, initial encounter; Y99.0 Civilian activity done for income or pay
CPT/HCPCS: 12001; 99284